=== PATIENT | male | born 1970 | race Caucasian/White ===

== ENCOUNTER 2019-05-23 07:03 | Emergency (ER) | payer OTHER ==
[~2019-05-23] VITALS: Ht 177.8 cm; Wt 73.3 kg
[2019-05-23 07:07] VITALS: BP 131/98
--- NOTE | 2019-05-23 07:14 | NUR ---
PT TO ROOM AT THIS TIME
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
[2019-05-23] MEDS ORDERED: ONDANSETRON 2MG/ML, 2ML ONE (07:25)
[2019-05-23] MEDS ORDERED: MORPHINE SULFATE 4 MG/ML, 1ML ONE ×2 (07:25→08:30)
[2019-05-23] MEDS ORDERED: SODIUM CHLORIDE FLUSH 10ML SYR IVF ONE (07:30)
[2019-05-23] MEDS ORDERED: ONDANSETRON 2MG/ML, 2ML IVPush ONE (07:30)
[2019-05-23] MEDS: MORPHINE SULFATE 4 MG/ML, 1ML IVPush PRN ×2 (07:36→08:33)
--- NOTE | 2019-05-23 09:00 | NUR ---
Patient/Caregiver given discharge instructions and they have confirmed that they understand the instructions. Patient ambulatory with steady gait. PT LEFT WITH ALL PERSONAL BELONGINGS.
== END 2019-05-23 09:02 | disposition home or self-care (01) ==
LOC: ED 08:40
DX: S42.022A Displaced fracture of shaft of left clavicle, initial encounter for closed fracture (principal); V29.49XA Motorcycle driver injured in collision with other motor vehicles in traffic accident, initial encounter; Y93.89 Activity, other specified; Y92.89 Other specified places as the place of occurrence of the external cause; Y99.8 Other external cause status
CPT/HCPCS: 73030; 73502; 96374; 96375; 96376; 99283; J2270; J2405

== ENCOUNTER 2019-05-29 11:35 | Day surgery (SDC) | payer OTHER ==
[~2019-05-29] VITALS: Ht 177.8 cm; Wt 70.2 kg
[2019-05-29] MEDS ORDERED: LACTATED RINGERS 1,000 ML IV SCH (12:19)
[2019-05-29 12:23] VITALS: BP 113/78
[2019-05-29] MEDS ORDERED: MESA0.372 PO (12:23)
[2019-05-29] MEDS ORDERED: ACETAMINOPHEN 500 MG TABLET PO ONE (12:30)
[2019-05-29] MEDS ORDERED: GABAPENTIN 300 MG CAPSULE PO ONE (12:30)
[2019-05-29] MEDS ORDERED: SCOPOLAMINE PATCH, 1.5MG PATCH.TD72 TD ONE (12:30)
[2019-05-29] MEDS ORDERED: MIDAZOLAM 1 MG/ML, 2ML ONE (13:25)
[2019-05-29] MEDS ORDERED: BUPIVACAINE/PF-EPI 0.5% 1:200K ONE (13:25)
[2019-05-29] MEDS ORDERED: FENTANYL PF 250 MCG/5ML ONE (13:25)
[2019-05-29] MEDS ORDERED: SUCCINYLCHOLINE 20 MG/ML, 10ML ONE (13:28)
[2019-05-29] MEDS ORDERED: ROCURONIUM 10 MG/ML,10ML ONE (13:28)
[2019-05-29] MEDS ORDERED: BUPIVACAINE/PF-EPI 0.25% 1:200K INFIL ONE (13:56)
[2019-05-29] MEDS ORDERED: METOPROLOL 1 MG/ML, 5ML IV PRN (14:00)
[2019-05-29] MEDS ORDERED: OXYcodone 5 MG/5 ML ORAL.SOL UDC PO PRN (14:00)
[2019-05-29] MEDS ORDERED: MEPERIDINE/PF 25MG/0.5ML IVPush PRN (14:00)
[2019-05-29] MEDS ORDERED: PROMETHAZINE 25 MG/ML, 1ML IV PRN (14:00)
[2019-05-29] MEDS ORDERED: MIDAZOLAM 1 MG/ML, 2ML IV PRN (14:00)
[2019-05-29] MEDS ORDERED: ALBUTEROL/IPRATROPIUM 2.5MG/0.5MG, 3 ML NPPB PRN (14:00)
[2019-05-29] MEDS ORDERED: hydrALAzine 20 MG/ML, 1ML IV PRN (14:00)
[2019-05-29] MEDS ORDERED: ONDANSETRON 2MG/ML, 2ML IV PRN (14:00)
[2019-05-29] MEDS ORDERED: DIAZEPAM 5 MG/ML, 2ML IVPush PRN (14:00)
[2019-05-29] MEDS ORDERED: ONDANSETRON 2MG/ML, 2ML ONE ×2 (14:50→15:41)
[2019-05-29] MEDS ORDERED: PROPOFOL 10 MG/ML, 20ML ONE (14:50)
[2019-05-29] MEDS ORDERED: CEFAZOLIN 1,000 MG ONE (14:50)
[2019-05-29] MEDS ORDERED: DEXAMETHASONE 4 MG/ML, 1ML ONE (14:50)
[2019-05-29] MEDS ORDERED: HYDROmorphone 2 MG/ML, 1ML ONE (15:30)
[2019-05-29] MEDS ORDERED: FENTANYL PF 100 MCG/2ML ONE ×2 (15:30→15:46)
[2019-05-29] MEDS ORDERED: OXYcodone 5 MG/5 ML ORAL.SOL UDC ONE (15:31)
[2019-05-29] MEDS: FENTANYL PF 100 MCG/2ML IV PRN ×2 (15:37→15:43)
[2019-05-29] MEDS: HYDROmorphone 2 MG/ML, 1ML IVPush PRN ×4 (15:38→16:07)
== END 2019-05-29 17:40 | disposition home or self-care (01) ==
LOC: OUT 11:35
PROVIDERS: ATTEND Orthopaedic Surgery
DX: S42.022A Displaced fracture of shaft of left clavicle, initial encounter for closed fracture (principal); K21.9 Gastro-esophageal reflux disease without esophagitis; K50.90 Crohn's disease, unspecified, without complications; Z87.891 Personal history of nicotine dependence; Z79.899 Other long term (current) drug therapy; Z88.5 Allergy status to narcotic agent; V29.9XXA Motorcycle rider (driver) (passenger) injured in unspecified traffic accident, initial encounter; Y93.89 Activity, other specified; Y92.89 Other specified places as the place of occurrence of the external cause; Y99.8 Other external cause status
CPT/HCPCS: 23515; 73000; C1713; J0330; J0690; J1100; J1170; J2250; J2405; J2704; J3010; J7120; 76000

== ENCOUNTER → 2021-03-23 | Outpatient (CLI) | payer OTHER ==
[~2021-03-23] MED LIST: MESA0.372 PO; OMNIPAQUE 350 MG/ML, 150 ML BOTTLE ONE
== END | disposition home or self-care (01) ==
LOC: CFH 13:11
PROVIDERS: ATTEND Urology
DX: I71.4 Abdominal aortic aneurysm, without rupture (principal); M51.36 Other intervertebral disc degeneration, lumbar region; D73.89 Other diseases of spleen; R31.0 Gross hematuria
CPT/HCPCS: 74178; Q9967

== ENCOUNTER → 2021-04-21 | Outpatient (CLI) | payer OTHER ==
[~2021-04-21] MED LIST changes: +BICT1TAB PO; +LACT1CAP35 PO; +LEVO50TA5 PO; +MIRT-14 PO; -OMNIPAQUE 350 MG/ML, 150 ML BOTTLE ONE; +SILD50TA PO; +SULF-16 PO
[2021-04-21 10:58] LABS: MEAN CORPUSCULAR HEMOGLOBIN 34.4 pg (27.5-34.5); MEAN CORPUSCULAR HGB CONC 34.9 g/dL (33.2-36.2); MEAN PLATELET VOLUME 7.7 fL (7.4-10.4); PLATELET COUNT 187 x10^3/uL (130-400); RED BLOOD COUNT 4.29 x10^6/uL (4.38-5.82); RED CELL DISTRIBUTION WIDTH 13.9 % (9.4-14.8)
[2021-04-21 11:02] LABS: ALANINE AMINOTRANSFERASE 27 U/L (12-78); ALBUMIN 3.4 g/dL (3.4-5.0); ANION GAP 6 mmol/L (5-15); CHLORIDE 107 mmol/L (98-107); CREATININE 0.99 mg/dL (0.7-1.3)
[2021-04-21 11:05] LABS: ALKALINE PHOSPHATASE 105 U/L (45-117); BILIRUBIN,TOTAL 0.3 mg/dL (0.2-1.0); TOTAL PROTEIN 8.2 g/dL (6.4-8.2)
[2021-04-21 11:33] LABS: EOS#(MANUAL) 0.21 x10^3/uL (0.0-0.4); EOS% (MANUAL) 3 % (1-7); LYMPH#(MANUAL) 1.93 x10^3/uL (1-3.4); LYMPHS% (MANUAL) 28 % (22-44); METAMYELOCYTES# (MANUAL) 0.07 x10^3/uL (0-0); METAMYELOCYTES% (MANUAL) 1 % (0-1); MONOS#(MANUAL) 0.14 x10^3/uL (0.3-2.7); MONOS% (MANUAL) 2 % (2-9); SEG#(MANUAL) 4.55 x10^3/uL (1.8-6.8); SEGS% (MANUAL) 66 % (42-75)
[2021-04-21 11:35] LABS: <PLATELET ESTIMATE> ADEQUATE; <PLT MORPHOLOGY> NORMAL PLT MORPH; <RBC MORPHOLOGY> NORMAL
== END | disposition home or self-care (01) ==
LOC: STAR 10:08
PROVIDERS: ATTEND Surgery
DX: Z01.812 Encounter for preprocedural laboratory examination (principal); A63.0 Anogenital (venereal) warts; Z20.822 Contact with and (suspected) exposure to COVID-19
CPT/HCPCS: 36415; 80053; 85025; U0003; U0005

== ENCOUNTER 2021-04-27 08:45 | Day surgery (SDC) | payer OTHER ==
[~2021-04-27] VITALS: Ht 177.8 cm; Wt 73.6 kg
[2021-04-27 09:11] VITALS: BP 118/78
[2021-04-27] MEDS ORDERED: CHLORHEXIDINE 15 ML UDC PO ONE (09:30)
[2021-04-27] MEDS ORDERED: LACTATED RINGERS 1,000 ML IV SCH (09:30)
[2021-04-27] MEDS ORDERED: BUPIVACAINE LIPOSOME/PF 10ML INFIL ONE ×2 (10:34→11:02)
[2021-04-27] MEDS ORDERED: FENTANYL PF 100 MCG/2ML ONE ×2 (10:38→11:35)
[2021-04-27] MEDS ORDERED: hydrALAzine 20 MG/ML, 1ML IV PRN (11:00)
[2021-04-27] MEDS ORDERED: OXYcodone 5 MG/5 ML ORAL.SOL UDC PO PRN (11:00)
[2021-04-27] MEDS ORDERED: DIPHENHYDRAMINE 50 MG/ML, 1ML IVPush PRN (11:00)
[2021-04-27] MEDS ORDERED: PROMETHAZINE 25 MG/ML, 1ML IVPush PRN (11:00)
[2021-04-27] MEDS ORDERED: LABETALOL 5MG/ML, 20ML IV PRN (11:00)
[2021-04-27] MEDS ORDERED: HALOPERIDOL 5 MG/ML IV PRN (11:00)
[2021-04-27] MEDS ORDERED: ROCURONIUM 10MG/ML,5ML ONE ×2 (11:20)
[2021-04-27] MEDS ORDERED: CEFAZOLIN 1,000 MG ONE (11:20)
[2021-04-27] MEDS ORDERED: PROPOFOL 10 MG/ML, 20ML ONE (11:20)
[2021-04-27] MEDS ORDERED: ONDANSETRON 2MG/ML, 2ML ONE (11:20)
[2021-04-27] MEDS ORDERED: NEOSTIGMINE 1 MG/ML, 10ML ONE (11:20)
[2021-04-27] MEDS ORDERED: GLYCOPYRROLATE 0.2MG/1ML, 5ML ONE (11:20)
[2021-04-27] MEDS ORDERED: SUCCINYLCHOLINE 20 MG/ML, 10ML ONE (11:20)
[2021-04-27] MEDS: FENTANYL PF 100 MCG/2ML IV PRN ×2 (11:35→11:41)
[2021-04-27] MEDS ORDERED: OXYcodone 5 MG/5 ML ORAL.SOL UDC ONE (11:36)
[2021-04-27] MEDS ORDERED: HYDROmorphone 1 MG/ML, 1ML INJ ONE (11:46)
[2021-04-27] MEDS: HYDROmorphone 1 MG/ML, 1ML INJ IVPush PRN ×2 (11:50→11:56)
[2021-04-27] MEDS ORDERED: OXYC1TAB14 PO (11:50)
== END 2021-04-27 13:05 | disposition home or self-care (01) ==
LOC: OUT 08:45
PROVIDERS: ATTEND Surgery
DX: A63.0 Anogenital (venereal) warts (principal); K62.82 Dysplasia of anus; K50.90 Crohn's disease, unspecified, without complications; E03.9 Hypothyroidism, unspecified; F12.10 Cannabis abuse, uncomplicated; Z79.890 Hormone replacement therapy; Z79.899 Other long term (current) drug therapy; Z88.5 Allergy status to narcotic agent; Z98.890 Other specified postprocedural states; Z87.891 Personal history of nicotine dependence; Z80.42 Family history of malignant neoplasm of prostate; Z80.1 Family history of malignant neoplasm of trachea, bronchus and lung; Z80.8 Family history of malignant neoplasm of other organs or systems
CPT/HCPCS: 46922; 88305; 88342; J0330; J1170; J2405; J2704; J3010; J7120; J0690; J2710

== ENCOUNTER → 2021-06-07 | Outpatient (CLI) | payer OTHER ==
[~2021-06-07] MED LIST changes: +OXYC1TAB14 PO
== END | disposition home or self-care (01) ==
LOC: CFH 15:21
PROVIDERS: ATTEND Nurse Practitioner Family
DX: R19.09 Other intra-abdominal and pelvic swelling, mass and lump (principal)
CPT/HCPCS: 76857

== ENCOUNTER 2021-06-21 12:59 | Emergency (ER) | payer OTHER ==
[~2021-06-21] VITALS: Ht 177.8 cm; Wt 75.0 kg
[2021-06-21] MEDS ORDERED: ONDANSETRON 2MG/ML, 2ML ONE (13:12)
[2021-06-21] MEDS ORDERED: LIDOCAINE-MPF 1%, 5ML ONE (13:12)
[2021-06-21] MEDS ORDERED: HYDROmorphone 2 MG/ML, 1ML ONE ×3 (13:12→16:19)
[2021-06-21] MEDS ORDERED: DIPH,PERTUSS(ACELL),TET VAC/PF 0.5 ML IM-VACC ONE ×2 (13:13→13:30)
[2021-06-21] MEDS: HYDROmorphone 1 MG/ML, 1ML INJ IVPush PRN ×2 (13:16→13:50)
[2021-06-21] MEDS ORDERED: LIDOCAINE-MPF 1%, 5ML INFIL ONE (13:30)
[2021-06-21] MEDS ORDERED: CEFAZOLIN PMX 1GM/50ML 50 ML IVPB ONE (13:30)
[2021-06-21] MEDS ORDERED: ONDANSETRON 2MG/ML, 2ML IVPush ONE (13:30)
--- NOTE | 2021-06-21 13:52 | NUR ---
MD Holm at bedside for digital block.
[2021-06-21 14:10] LABS: RED BLOOD COUNT 4.37 x10^6/uL (4.38-5.82)
[2021-06-21 14:11] LABS: BASOPHILS % (AUTO) 1 % (0-1); EOSINOPHILS % (AUTO) 1 % (1-7); LYMPHOCYTES % (AUTO) 50 % (22-44); MEAN CORPUSCULAR HGB CONC 34.4 g/dL (33.2-36.2); MEAN PLATELET VOLUME 7.6 fL (7.4-10.4); MONOCYTES % (AUTO) 9 % (2-9); NEUTROPHILS % (AUTO) 40 % (42-75); PLATELET COUNT 193 x10^3/uL (130-400); RED CELL DISTRIBUTION WIDTH 13.1 % (9.4-14.8)
[2021-06-21 14:13] LABS: ALBUMIN 3.4 g/dL (3.4-5.0); ANION GAP 5 mmol/L (5-15); CALCIUM 8.9 mg/dL (8.5-10.1); CHLORIDE 107 mmol/L (98-107); CREATININE 1.11 mg/dL (0.7-1.3)
[2021-06-21] MEDS ORDERED: CEFAZOLIN PMX 1GM/50ML 50 ML ONE (14:48)
--- NOTE | 2021-06-21 15:17 | NUR ---
Ortho at bedside for eval. Pt to be d/c'd with outpt follow-up appt.
[2021-06-21] MEDS ORDERED: NEOSPORIN OINT. PKT 1 PACKET ONE (15:28)
[2021-06-21 16:23] VITALS: BP 109/74
[2021-06-21] MEDS ORDERED: HYDROmorphone 1 MG/ML, 1ML INJ IV ONE (16:30)
== END 2021-06-21 13:28 | disposition home or self-care (01) ==
LOC: ED 13:22
DX: S62.524B Nondisplaced fracture of distal phalanx of right thumb, initial encounter for open fracture (principal); Z87.891 Personal history of nicotine dependence; X58.XXXA Exposure to other specified factors, initial encounter; Y93.89 Activity, other specified; Y92.009 Unspecified place in unspecified non-institutional (private) residence as the place of occurrence of the external cause; Y99.8 Other external cause status
CPT/HCPCS: 36415; 73130; 80048; 82040; 85025; 90471; 90715; 96365; 96375; 96376; 99284; J0690; J1170; J2405